=== PATIENT | female | born 2000 | race American Indian/Alaskan Native ===

== ENCOUNTER 2018-10-29 06:45 | Outpatient (CLI) | payer MEDICAID ==
[2018-10-29] MEDS ORDERED: LACTATED RINGERS 1,000 ML IV ONE (09:04)
[2018-10-29 09:21] VITALS: BP 117/70
== END 2018-10-29 12:21 | disposition home or self-care (01) ==
LOC: TRG 06:45
PROVIDERS: ATTEND Obstetrics & Gynecology
DX: O21.2 Late vomiting of pregnancy (principal); O26.893 Other specified pregnancy related conditions, third trimester; R10.9 Unspecified abdominal pain; R19.7 Diarrhea, unspecified; O47.03 False labor before 37 completed weeks of gestation, third trimester; Z3A.35 35 weeks gestation of pregnancy
CPT/HCPCS: 96360; J7120